=== PATIENT | female | born 1945 | race Caucasian/White ===

== ENCOUNTER 2016-12-29 11:18 | Emergency (ER) | payer OTHER ==
[~2016-12-29] VITALS: Ht 162.6 cm; Wt 58.7 kg
[~2016-12-29 11:18] MED LIST: ACYC1CAP16 PO; ALPR0.5T99 PO; ESTROTEST; HYDR-2768 PO; HYDR-3533 PO; LOMO PO; MELO7.5T PO; MILN25 PO; ST J81CH PO; TOPR50TA PO
[2016-12-29 11:30] VITALS: BP 157/95; PULSE 69; RESP 18; TEMP 97.3; O2SAT 96
[2016-12-29] MEDS ORDERED: METF500T PO (11:55)
[2016-12-29] MEDS ORDERED: ACYC400T PO (11:55)
[2016-12-29] MEDS ORDERED: HYDR12.57 PO (11:55)
[2016-12-29] MEDS ORDERED: ALPR0.5T3 PO (11:55)
[2016-12-29] MEDS ORDERED: CALC1TAB12 PO (11:55)
[2016-12-29] MEDS ORDERED: METO50TA11 PO (11:55)
[2016-12-29 12:15] LABS: POTASSIUM 3.9 MEQ/L (3.5-5.1)
--- NOTE | 2016-12-29 12:16 | PD ---
HPI Chief Complaint: Edema Time Seen by Provider: 11:38 Travel History International Travel<30 days: No Contact w/Intl Traveler<30days: No Traveled to known affect area: No History of Present Illness HPI This 71-year-old woman who presents to the emergency department complaining of some swelling in her left foot and ankle starting yesterday with a little bit of left calf tenderness. She's never really had similar symptoms in the past. She does describe an unusual crawling or creeping feeling in the foot associated with it. Only other medical history is hypertension diabetes. She was just diagnosed with diabetes. No history of neuropathy, peripheral vascular disease, DVT or PE. She went to an urgent care who referred her to the emergency department for evaluation for DVT because when they measured her they were unequal. She otherwise has been feeling generally well and healthy. No other complaints. History Past Medical History Narrative Medical Hypertension Anxiety Diabetes Tetanus Vaccination: Unknown Influenza Vaccination: No PNEUMOCCOCAL Vaccine (Year): 2 Menopausal: Yes Social History Alcohol Use: Yes (3 glasses wine/night) Tobacco Use: No Allergies-Medications (Allergen,Severity, Reaction): Coded Allergies: Hydrocodone (Verified Allergy, Mild, ITCHING, 12/29/16) Iodine (Verified Allergy, Unknown, Itching, 12/29/16) Reported Meds & Prescriptions Reported Meds & Active Scripts Active Reported Calcium 500 +D (Calcium Carbonate-Cholecalciferol) 500-400 Mg-Unit Tab 1 Tab PO BID Metformin (Metformin HCl) 500 Mg Tab 500 Mg PO DAILY With a meal Metoprolol Succinate ER 24 HR (Metoprolol Succinate) 50 Mg Tab 50 Mg PO BID Hydrochlorothiazide 12.5 Mg Cap 12.5 Mg PO DAILY Alprazolam 0.5 Mg Tab 0.5 Mg PO BID Acyclovir 400 Mg Tab 400 Mg PO BID Review of Systems Except as stated in HPI: all other systems reviewed are Neg Physical Exam Narrative GENERAL: Well-appearing 71 old woman, no acute distress. SKIN: Focused skin assessment warm/dry. CARDIOVASCULAR: Regular rate and rhythm. No murmur appreciated. RESPIRATORY: No accessory muscle use. Clear to auscultation. Breath sounds equal bilaterally. GASTROINTESTINAL: Abdomen soft, non-tender, nondistended. Hepatic and splenic margins not palpable. MUSCULOSKELETAL: No obvious deformities. No appreciable edema or swelling. No calf tenderness. Palpable pulses. Little bit of cyanosis to the leg. NEUROLOGICAL: Awake and alert. No obvious cranial nerve deficits. Motor grossly within normal limits. Normal speech. PSYCHIATRIC: Appropriate mood and affect; insight and judgment normal. Data Data Last Documented VS Vital Signs Date Time Temp Pulse Resp B/P Pulse Ox O2 Delivery O2 Flow Rate FiO2 12/29/16 11:30 97.3 69 18 157/95 96 Orders Basic Metabolic Panel (Bmp) (12/29/16 11:46) Magnesium (Mg) (12/29/16 11:46) Us Leg Venous Doppler (12/29/16 ) Labs Laboratory Tests Test 12/29/16 12:00 Sodium Level 142 MEQ/L Potassium Level 3.9 MEQ/L Chloride Level 102 MEQ/L Carbon Dioxide Level 31.0 MEQ/L Anion Gap 9 MEQ/L Blood Urea Nitrogen 18 MG/DL Creatinine 0.77 MG/DL Estimat Glomerular Filtration 73 ML/MIN Rate Random Glucose 107 MG/DL Calcium Level 10.1 MG/DL Magnesium Level 2.0 MG/DL [facility] Medical Decision Making Medical Screen Exam Complete: Yes Emergency Medical Condition: Yes Interpretation(s) BMP unremarkable Magnesium normal Doppler ultrasound negative. Differential Diagnosis DVT, strain or sprain, neuropathy, other Narrative Course Medical decision making Well-appearing 71-year-old woman who presents with some left calf pain and left foot and ankle swelling. Likely strain or sprain. She looks otherwise well. Toes are little bit bluish but she has good pulses and no history of PVD and she denies any claudication symptoms. We'll check ultrasound. We'll also check labs given her bizarre paresthesia-like symptoms that she describes as a creeping crawling sensation on her foot. Expect OB normal. Will likely discharge for outpatient follow-up. Diagnosis Primary Impression: Left leg swelling Additional Instructions: Follow-up with her regular doctor in 2-3 days every not feeling completely well. Return to the emergency department for any new or worsening symptoms. Med/Other Pt SpecificInfo: No Change to Meds Disposition: 01 DISCHARGE HOME Condition: Stable Demario Rivera MD Dec 29, 2016 12:16
--- NOTE | 2016-12-29 13:26 | RADHPO ---
EXAM DATE/TIME: 12/29/2016 13:11 [place] COMPARISON: No previous studies available for comparison. EXTERNAL COMPARISON : [facility], US LEG, RIGHT VENOUS DOPPLER, July 08, 2008. INDICATIONS : Left leg edema. MEDICAL HISTORY : Arthritis. Neck pain. HTN. Bowel obstruction. Hiatal hernia. GERD. Fibromyalgia. Diabetes. Anxi ety. SURGICAL HISTORY : Tonsillectomy. Appendectomy. Hysterectomy. Thyroid nodule removed. Adenoidectomy. Cyst removed from intestine. Anterior cervical with candovor bone. ENCOUNTER: Initial ACUITY: 2 day PAIN SCORE: 6/10 LOCATION: Left leg. TECHNIQUE: Venous ultrasound of the leg was performed from the inguinal ligament to the proximal calf. Real-karen e, color Doppler and spectral tracing, compression and augmentation techniques were used. FINDINGS: There is normal compressibility of the deep venous system from the inguinal region to the proximal ca lf. No echogenic clot is seen in the lumen of the common femoral, femoral, popliteal, and posterior tibial veins. There is a normal response of the venous system to proximal and distal augmentation an d respiration. CONCLUSION: 1. No evidence of deep venous thrombosis. Toni Dhaliwal MD on December 29, 2016 at 13:24 Board Certified Radiologist. This report was verified electronically.
[2016-12-29 13:35] VITALS: BP 174/90; PULSE 69; RESP 14; O2SAT 96
== END 2016-12-29 13:35 | disposition home or self-care (01) ==
LOC: PHED 11:18
DX: R22.42 Localized swelling, mass and lump, left lower limb (principal); M79.662 Pain in left lower leg; R20.2 Paresthesia of skin; I10 Essential (primary) hypertension; E11.9 Type 2 diabetes mellitus without complications; Z79.84 Long term (current) use of oral hypoglycemic drugs; Z79.899 Other long term (current) drug therapy; Z86.59 Personal history of other mental and behavioral disorders
CPT/HCPCS: 80048; 83735; 93971